=== PATIENT | female | born 2000 | race Caucasian/White ===

== ENCOUNTER → 2022-12-13 | Outpatient (CLI) | payer BC ==
--- NOTE | 2022-12-13 14:19 | MR ---
EXAMINATION TYPE: MR brain wo/w con DATE OF EXAM: 12/13/2022 COMPARISON: None HISTORY: Dizzy spells TECHNIQUE: Multiplanar, multisequence images of the brain and brainstem is performed without and with IV contras t, utilizing 15 mL intravenous Gadavist . FINDINGS: Diffusion weighted images demonstrate no evidence of a recent infarct or other diffusion ab normality. There is no extra-axial fluid collection or significant white matter signal abnormality. The ventricular system and cisternal spaces are normal in size and appearance. The brain volume is age appropriate. Midline structures demonstrate normal morphology. The craniocervical junction appears within normal limits. Post contrast images demonstrate no abnormal enhancement. The dural venous sinuses appear pa tent. The visualized sinuses are clear and the globes are intact. IMPRESSION: No MRI evidence for acute/subacute ischemia, intracranial mass, or abnormal enhancement.
== END | disposition home or self-care (01) ==
LOC: RADMRIMAIN 11:16
PROVIDERS: ATTEND Family Medicine
DX: G43.009 Migraine without aura, not intractable, without status migrainosus (principal); F43.10 Post-traumatic stress disorder, unspecified; F32.1 Major depressive disorder, single episode, moderate; F41.9 Anxiety disorder, unspecified; R42 Dizziness and giddiness
CPT/HCPCS: 70553; A9585

== ENCOUNTER → 2023-03-21 | Outpatient (CLI) | payer BC ==
--- NOTE | 2023-04-29 12:07 | P.CEMON ---
30 Day Event monitor note: Patient wore an event monitor for 30 days from 03/21/2023 through 04/20/2023. Findings: Patient's baseline heart rate was normal sinus rhythm. There were no signficant atrial fibrillation, atrial flutter, or ventricular tachycardia episodes. There were no significant pauses greater than 2 seconds. There were a total of 54 patient activated and automatically captured events. Symptoms of dizziness, lightheadedness predominantly corresponded with sinus tachycardia with heart rates in the 110-160 range. No average heart rate available however majority of heart rates in the 90s to 120 range Conclusions: 30 day event monitor showing normal sinus rhythm and sinus tachycardia. Majority of heart rates appear above 100 however no average heart rate given with monitor device.
--- NOTE | 2023-05-03 10:17 | EM ---
30 Day Event monitor note: Patient wore an event monitor for 30 days from 03/21/2023 through 04/20/2023. Findings: Patient's baseline heart rate was normal sinus rhythm. There were no significant atrial fibrillation, atrial flutter, or ventricular tachycardia episodes. There were no significant pauses greater than 2 seconds. There were a total of 54 patient activated and automatically captured events. Symptoms of dizziness, lightheadedness predominantly corresponded with sinus tachycardia with heart rates in the 110-160 range. No average heart rate available however majority of heart rates in the 90s to 120 range Conclusions: 30 day event monitor showing normal sinus rhythm and sinus tachycardia. Majority of heart rates appear above 100 however no average heart rate given with monitor device. MTDD
== END | disposition home or self-care (01) ==
LOC: RADECHMAIN 08:10
PROVIDERS: ATTEND Family Medicine
DX: R00.0 Tachycardia, unspecified (principal); G43.009 Migraine without aura, not intractable, without status migrainosus; R42 Dizziness and giddiness; R00.2 Palpitations
CPT/HCPCS: 93270